=== PATIENT | female | born 1990 | race African-American/Black ===

== ENCOUNTER 2022-10-25 10:01 | Inpatient (IN) | payer MEDICAID ==
[~2022-10-25] VITALS: Ht 170.2 cm; Wt 49.8 kg
[2022-10-25] MEDS ORDERED: MORPHINE SULFATE 4 MG/ML CPJ (NOT FOR IM USE) IV STA (10:19)
[2022-10-25 11:14] LABS: BASOPHILS % 0.4 % (0.0-2.0); HEMATOCRIT. 39.4 % (36.0-48.0); HEMOGLOBIN. 12.7 g/dL (12.0-16.0); LYMPHOCYTES % 8.2 % (20.0-50.0); MEAN CORPUSCULAR HEMOGLOBIN 26.4 pg (28.0-32.0); MEAN CORPUSCULAR HGB CONC 32.3 g/dL (31.0-37.0); MEAN CORPUSCULAR VOLUME 81.6 fL (81.0-99.0); MEAN PLATELET VOLUME 9.1 fl (7.4-10.4); MONOCYTES % 6.9 % (2.0-8.0); NEUTROPHILS % 84.5 % (40.0-76.0); PLATELET 228 x1000/uL (130-400); RED BLOOD CELL COUNT 4.83 mill/uL (4.2-5.4); RED CELL DISTRIBUTION WIDTH 17.8 % (11.6-14.6); WHITE BLOOD COUNT 13.7 x1000/uL (4.5-11.0)
[2022-10-25 11:24] LABS: CLARITY URINE TURBID (CLEAR); COLOR URINE ORANGE (YELLOW); GLUCOSE URINE NEGATIVE (NEGATIVE); KETONES URINE 1+ (NEGATIVE); LEUKOCYTE ESTERASE URINE 1+ (NEGATIVE); NITRITE URINE POSITIVE (NEGATIVE); OCCULT BLOOD URINE 1+ (NEGATIVE); PH URINE 5.5 (4.5-8.0); PROTEIN URINE 2+ (NEGATIVE); SPECIFIC GRAVITY URINE 1.032 (1.005-1.030)
[2022-10-25 11:25] LABS: CHLORIDE 84 mEq/L (98-107); INDEX HEMOLYSI 3 (1-3); INDEX ICTERIC 2 (1-4); INDEX LIPEMIC 1 (1-3); POTASSIUM 3.2 mEq/L (3.5-5.1); SODIUM 128 mEq/L (136-145)
[2022-10-25 11:36] LABS: ALANINE AMINOTRANSFERASE 134 IU/L (13-61); ALBUMIN 4.2 g/dL (3.4-5.0); ASPARTATE AMINOTRANSFERASE 406 IU/L (15-37); BILIRUBIN TOTAL 3.7 mg/dL (0.1-1.0); CALCIUM 9.4 mg/dL (8.5-10.1); CARBON DIOXIDE 31 mEq/L (21-32); CREATININE 0.9 mg/dL (0.6-1.3); GLUCOSE 250 mg/dL (70-105); TROPONIN I HIGH SENSITIVITY 25 ng/L (<54); UREA NITROGEN BLOOD 16 mg/dL (7-21)
[2022-10-25] MEDS ORDERED: CEFTRIAXONE 1GM PREMIX 50 ML IV ONE (11:45)
[2022-10-25 12:07] LABS: INR 1.6; PROTHROMBIN TIME 16.7 sec (9.6-11.0)
[2022-10-25 12:15] LABS: HCG SCREEN NEGATIVE
[2022-10-25 12:54] LABS: SQUAMOUS EPITHELIAL CELL URINE 3+ /lpf (RARE/1+)
[2022-10-25 12:55] LABS: BACTERIA URINE 3+
[2022-10-25 12:56] LABS: WBC URINE 0-2 /hpf (0-2)
[2022-10-25 16:05] VITALS: BP 139/102; RESP 19; TEMP 97.7; O2SAT 98
[2022-10-25] MEDS ORDERED: POTASSIUM CHLORIDE 20MEQ TABLET SR PO NR (16:30)
[2022-10-25] MEDS ORDERED: KETOROLAC 30MG/ML VIAL IV PRN (16:30)
[2022-10-25] MEDS: SODIUM CHLORIDE 0.9% 1,000 ML IV SCH (16:30)
[2022-10-25] MEDS ORDERED: ACETAMINOPHEN 325MG TABLET PO PRN (16:30)
[2022-10-25 20:00] VITALS: BP 130/95; PULSE 82; RESP 20; TEMP 97.9
[2022-10-25 20:14] VITALS: BP 148/66; PULSE 88; RESP 17; TEMP 98
[2022-10-25] MEDS: HYDROCODONE/ACETAMINOPHEN 5/325MG TABLET PO PRN (20:25)
[2022-10-25] MEDS: ONDANSETRON HCL 4MG/2ML INJ IV PRN (23:11)
[2022-10-26] VITALS: BP 131/89; PULSE 69; RESP 19; TEMP 97.9
[2022-10-26 04:00] VITALS: BP 120/90; PULSE 80; RESP 19; TEMP 97.9
[2022-10-26] MEDS: SODIUM CHLORIDE 0.9% 1,000 ML IV SCH ×2 (04:55→19:10)
[2022-10-26] MEDS: ONDANSETRON HCL 4MG/2ML INJ IV PRN ×3 (05:01→20:38)
[2022-10-26] MEDS: HYDROCODONE/ACETAMINOPHEN 5/325MG TABLET PO PRN ×4 (05:02→20:38)
[2022-10-26 07:34] LABS: CHLORIDE 93 mEq/L (98-107); INDEX HEMOLYSI 1 (1-3); INDEX ICTERIC 2 (1-4); INDEX LIPEMIC 1 (1-3); POTASSIUM 3.5 mEq/L (3.5-5.1); SODIUM 135 mEq/L (136-145)
[2022-10-26 07:42] LABS: CALCIUM 8.5 mg/dL (8.5-10.1); CARBON DIOXIDE 31 mEq/L (21-32); CREATININE 0.7 mg/dL (0.6-1.3); GLUCOSE 90 mg/dL (70-105); UREA NITROGEN BLOOD 23 mg/dL (7-21)
[2022-10-26 08:00] VITALS: BP 142/92; PULSE 66; RESP 18; TEMP 96.4
[2022-10-26 12:00] VITALS: BP 148/90; PULSE 73; RESP 18; TEMP 97.9
[2022-10-26] MEDS: CEFTRIAXONE 1,000 MG in DEXTROSE 5% WATER 50 ML IV SCH (12:35)
[2022-10-26 16:00] VITALS: BP 140/92; PULSE 76; RESP 18; TEMP 97.7
[2022-10-26 20:00] VITALS: BP 146/90; PULSE 78; RESP 18; TEMP 99
[2022-10-26] MEDS ORDERED: NALOXONE HCL 0.4MG/ML VIAL IV PRN (22:00)
[2022-10-27] VITALS: BP 162/100; PULSE 66; RESP 16; TEMP 98
[2022-10-27] MEDS: HYDROCODONE/ACETAMINOPHEN 5/325MG TABLET PO PRN ×2 (00:40→06:46)
[2022-10-27] MEDS: CLONIDINE 0.1MG TABLET PO PRN ×2 (01:13→06:46)
[2022-10-27 04:00] VITALS: BP 139/101; PULSE 66; RESP 16; TEMP 97.9
[2022-10-27 08:00] VITALS: BP 151/109; PULSE 68; RESP 18; TEMP 97.1
[2022-10-27] MEDS: SODIUM CHLORIDE 0.9% 1,000 ML IV SCH (08:30)
[2022-10-27] MEDS ORDERED: LEVO-65 MT (10:12)
[2022-10-27] MEDS ORDERED: AMLO10TA80 MT (10:13)
[2022-10-27] MEDS ORDERED: AMLODIPINE 10MG TABLET PO SCH (10:15)
[2022-10-27 12:00] VITALS: BP 138/101; PULSE 75; RESP 18; TEMP 96.8
[2022-10-27] MEDS: CEFTRIAXONE 1,000 MG in DEXTROSE 5% WATER 50 ML IV SCH (12:00)
[2022-10-27 16:00] VITALS: BP 159/103; PULSE 74; RESP 19; TEMP 95.7
[2022-10-27 17:06] VITALS: BP 138/101; PULSE 75; TEMP 96.8; O2SAT 98
== END 2022-10-27 17:40 | disposition home or self-care (01) | DRG 463 ==
LOC: ER 10:01 → 6EST 13:58 → EDBEDREQTM 14:22 → EDBEDREQ 14:22
PROVIDERS: ADMIT Internal Medicine; ATTEND Internal Medicine
DX: N39.0 Urinary tract infection, site not specified (principal); K85.90 Acute pancreatitis without necrosis or infection, unspecified; E87.1 Hypo-osmolality and hyponatremia; R74.01 Elevation of levels of liver transaminase levels; E87.6 Hypokalemia; F41.9 Anxiety disorder, unspecified; Z90.49 Acquired absence of other specified parts of digestive tract; Z88.7 Allergy status to serum and vaccine; Z79.899 Other long term (current) drug therapy
CPT/HCPCS: 36415; 74176; 76705; 80048; 80053; 81003; 83036; 84484; 84703; 85025; 99285; J0696; J2270; J2405; J7030; J7060

== ENCOUNTER 2023-03-19 19:29 | Emergency (ER) | payer MEDICAID ==
[~2023-03-19] VITALS: Ht 167.6 cm; Wt 70.0 kg
[~2023-03-19 19:29] MED LIST: AMLO10TA80 MT; LEVO-65 MT
[2023-03-19 19:36] VITALS: BP 145/90; PULSE 88; RESP 18; TEMP 98
[2023-03-19 20:37] LABS: MEAN CORPUSCULAR HEMOGLOBIN 27.4 pg (28.0-32.0); MEAN CORPUSCULAR HGB CONC 32.4 g/dL (31.0-37.0); MEAN CORPUSCULAR VOLUME 84.6 fL (81.0-99.0); PLATELET 265 x1000/uL (130-400); RED BLOOD CELL COUNT 4.37 mill/uL (4.2-5.4); WHITE BLOOD COUNT 5.5 x1000/uL (4.5-11.0)
[2023-03-19 20:52] LABS: ALANINE AMINOTRANSFERASE 134 IU/L (10-49); ALBUMIN 4.3 g/dL (3.2-4.8); ASPARTATE AMINOTRANSFERASE 354 IU/L (<34); BILIRUBIN TOTAL 2.8 mg/dL (0.1-1.0); CALCIUM 9.2 mg/dL (8.7-10.4); CARBON DIOXIDE 24 mEq/L (21-32); CHLORIDE 101 mEq/L (98-107); CREATININE 0.6 mg/dL (0.6-1.0); GLUCOSE 138 mg/dL (70-105); POTASSIUM 3.3 mEq/L (3.5-5.1); PROTEIN TOTAL 8.5 g/dL (6.0-8.3); SODIUM 140 mEq/L (136-145); UREA NITROGEN BLOOD 10 mg/dL (9-23)
[2023-03-19 23:19] LABS: HCG SCREEN NEGATIVE
[2023-03-19 23:30] LABS: AMYLASE 94 IU/L (30-118)
[2023-03-20] MEDS ORDERED: KETOROLAC 15MG/ML VIAL IV ONE (00:45)
[2023-03-20] MEDS ORDERED: MORPHINE SULFATE 4 MG/ML CPJ (NOT FOR IM USE) IV ONE (01:30)
[2023-03-20] MEDS: SODIUM CHLORIDE 0.9% 1,000 ML IV ONE (02:23)
[2023-03-20] MEDS: VISCOUS LIDOCAINE 2% 15 ML UDC PO NR (02:24)
[2023-03-20] MEDS: MAGNESIUM/ALUMINUM HYDROXIDE/SIMETHICONE 30ML UDC PO NR (02:24)
[2023-03-20] MEDS: MORPHINE SULFATE 4 MG/ML CPJ (NOT FOR IM USE) IV NR (02:26)
[2023-03-20] MEDS: PANTOPRAZOLE SODIUM 40 MG/VIAL IV NR (02:26)
[2023-03-20] MEDS: KETOROLAC 15MG/ML VIAL IV NR (02:26)
[2023-03-20] MEDS: ONDANSETRON HCL 4MG/2ML INJ IV NR (02:26)
[2023-03-20] MEDS: MISCELLANEOUS MEDICATION 1 EA PO ONE (02:31)
[2023-03-20] MEDS: PANTOPRAZOLE SODIUM 40 MG/VIAL IV ONE (02:32)
[2023-03-20] MEDS: ONDANSETRON HCL 4MG/2ML INJ IV ONE (02:32)
[2023-03-20] MEDS: MAGNESIUM/ALUMINUM HYDROXIDE/SIMETHICONE 30ML UDC PO ONE (02:32)
[2023-03-20] MEDS ORDERED: IOHEXOL-300 100 ML BOTTLE ONE (02:52)
[2023-03-21] MEDS ORDERED: IOHEXOL-300 100 ML BOTTLE ONE (11:52)
== END 2023-03-20 03:27 | disposition left against medical advice (07) ==
LOC: ER 19:29
DX: R10.13 Epigastric pain (principal)
CPT/HCPCS: 80053; 82150; 84703; 83690; 85027; 36415; 71045; 99285; 74177; 96361; 96374; 96375; Q9967; J1885; J2405; C9113; J2270; J7030; Z7610 ×3